=== PATIENT | male | born 1995 | race Caucasian/White ===

== ENCOUNTER 2020-05-30 17:00 | Emergency (ER) | payer BC ==
[2020-05-30 17:46] LABS: #Basophils 0.1 thou/uL (0.0-0.2); #Eosinphils 0.1 thou/uL (0.0-0.7); #Lymphocytes 1.9 thou/uL (1.20-3.40); #Monocytes 0.7 thou/uL (0.11-0.59); #Neutrophils 8.3 thou/uL (1.40-6.50); %Basophils 0.6 % (0.0-1.0); %Lymphocytes 17.1 % (21.0-51.0); %Monocytes 5.9 % (0.0-10.0); %Neutrophils 75.3 % (42.0-75.0); Hemoglobin 14.8 g/dL (14.0-18.0); Mean Corpuscular HGB CONC 32.8 g/dL (32.0-36.0); Mean Corpuscular Hemoglobin 30.3 pg (27.0-31.0); Mean Corpuscular Volume 92.2 fL (78.0-98.0); Mean Platelet Volume 8.1 fL (7.4-10.4); Platelet Count 350 thou/uL (130-400); RBC Distribution Width 12.1 % (11.5-14.5); Red Blood Cell (RBC) Count 4.88 mill/uL (4.70-6.10)
[2020-05-30 17:58] LABS: Bilirubin Negative (Negative); Blood, Urine Negative (Negative); Clarity Turbid (Clear); Glucose, Urine (Dipstick) Normal (Negative); Ketone, Urine Negative (Negative); Leukocyte Negative Leu/uL (Negative); Nitrite Negative (Negative); Protein, Urine (Dipstick) Negative (Neg-Trace); Specific Gravity, Urine 1.016 (1.002-1.036); Urobilinogen Normal mg/dL (Less than 2); pH, Urine 5.5 (5.0-9.0)
[2020-05-30 18:10] LABS: ALT (SGPT) 46 U/L (8-55); AST (SGOT) 59 U/L (5-34); Acetaminophen Less than 6.0 mcg/mL (10.0-30.0); Albumin 4.2 g/dL (3.5-5.0); Alcohol Less than 10 mg/dL (Less than 10); Alkaline Phosphatase 77 U/L (40-110); Anion Gap 13 mmol/L (10-20); BUN (Urea Nitrogen) 11 mg/dL (8.9-20.6); Bilirubin, Total 0.4 mg/dL (0.2-1.2); Calc. Creatinine Clearance 0 mL/min (70-130); Calcium 9.4 mg/dL (7.8-10.44); Carbon Dioxide 28 mmol/L (22-29); Chloride 101 mmol/L (98-107); Estimated GFR-MDRD Greater than 90; Globulin 3.5 g/dL (2.4-3.5); Glucose 195 mg/dL (70-105); Potassium 4.8 mmol/L (3.5-5.1); Protein, Total 7.7 g/dL (6.0-8.3); Salicylate Less than 8.0 mg/dL (15.0-30.0); Sodium 137 mmol/L (136-145)
[2020-05-30 18:14] LABS: Amphetamine Not Detected (NotDetected); Barbiturates Screen Not Detected (NotDetected); Benzodiazepine Screen Not Detected (NotDetected); Cocaine Metabolite Screen Not Detected (NotDetected); Medtox Control Line Valid? VALID (VALID); Medtox Reader # READER 1; Methadone Not Detected (NotDetected); Methamphetamine Not Detected (NotDetected); Opiate Screen Not Detected (NotDetected); Oxycodone Screen Not Detected (NotDetected); Phencyclidine (PCP) Not Detected (NotDetected); THC/Cannabinoid Screen Not Detected (NotDetected); Tricyclic Screen Not Detected (NotDetected)
--- NOTE | 2020-05-30 18:16 | CT ---
CT HEAD WITHOUT CONTRAST: 05/30/20 INDICATIONS: Mental status change. FINDINGS: The ventricles have normal size and position. No evidence of intracranial mass, hemorrhage, contusion or edema. No evidence of infarct. The visualized sinuses and mastoids are clear. The bony calvarium appears intact. IMPRESSION: Unremarkable head CT. POS: AGW
== END 2020-05-30 19:30 | disposition home or self-care (01) ==
LOC: ERS 17:00
DX: R41.0 Disorientation, unspecified (principal); E10.9 Type 1 diabetes mellitus without complications; Z79.4 Long term (current) use of insulin
CPT/HCPCS: 36415; 36416; 70450; 80053; 80306; 80307; 81003; 84484; 85025; 93005

== ENCOUNTER 2020-10-01 16:48 | Inpatient (IN) | payer BC ==
[2020-10-01 17:34] LABS: #Monocytes 0.2 thou/uL (0.11-0.59); #Neutrophils 9.9 thou/uL (1.40-6.50); %Basophils 0.3 % (0.0-1.0); %Eosinophils 0.2 % (0.0-10.0); %Lymphocytes 16.2 % (21.0-51.0); %Monocytes 1.8 % (0.0-10.0); %Neutrophils 81.4 % (42.0-75.0); Hemoglobin 17.2 g/dL (14.0-18.0); Mean Corpuscular HGB CONC 33.3 g/dL (32.0-36.0); Mean Corpuscular Hemoglobin 31.6 pg (27.0-31.0); Mean Corpuscular Volume 94.9 fL (78.0-98.0); Mean Platelet Volume 10.3 fL (7.4-10.4); Platelet Count 212 thou/uL (130-400); RBC Distribution Width 12.5 % (11.5-14.5); Red Blood Cell (RBC) Count 5.44 mill/uL (4.70-6.10); White Blood Cell (WBC) Count 12.1 thou/uL (4.8-10.8)
[2020-10-01 17:37] LABS: Base Excess-Venous -16.2 mmol/L (-2.0 to 3.0); Bicarbonate (HCO3v) 10.7 mmol/L (22.0-28.0); Calcium, Ionized 1.09 mmol/L (1.15-1.33); Chloride 107 mmol/L (98-107); Potassium 4.8 mmol/L (3.5-5.1); Sodium 131 mmol/L (138-145); T. Carbon Dioxide 11.6 mmol/L (22.0-28.0); vO2 Saturation-calc 62.5 % (60.0-85.0)
[2020-10-01] MEDS ORDERED: INSULIN REGULAR IN 0.9 % NACL 100 UNIT/100 ML BAG ONE (17:43)
[2020-10-01 18:01] LABS: ALT (SGPT) 82 U/L (8-55); AST (SGOT) 37 U/L (5-34); Albumin 5.4 g/dL (3.5-5.0); Alkaline Phosphatase 78 U/L (40-110); Anion Gap 36 mmol/L (10-20); BUN (Urea Nitrogen) 27 mg/dL (8.9-20.6); Bilirubin, Total 0.8 mg/dL (0.2-1.2); Calc. Creatinine Clearance 0 mL/min (70-130); Carbon Dioxide 10 mmol/L (22-29); Chloride 96 mmol/L (98-107); Estimated GFR-MDRD 47; Globulin 4.1 g/dL (2.4-3.5); Glucose 438 mg/dL (70-105); Protein, Total 9.5 g/dL (6.0-8.3); Sodium 137 mmol/L (136-145)
[2020-10-01 19:13] LABS: Bacteria/HPF None Seen HPF (None Seen); Bilirubin Negative (Negative); Blood, Urine Trace (Negative); Clarity Clear (Clear); Glucose, Urine (Dipstick) Greater than 1000 mg/dL (Negative); Ketone, Urine Greater than 150 mg/dL (Negative); Leukocyte Negative Leu/uL (Negative); Nitrite Negative (Negative); Protein, Urine (Dipstick) 20 mg/dL (Neg-Trace); Specific Gravity, Urine 1.023 (1.002-1.036); Squamous Epithelial None Seen HPF (0-3); Urobilinogen Normal mg/dL (Less than 2); WBC/HPF 0-3 HPF (0-3)
[2020-10-01] MEDS ORDERED: NS 0.9% w/ 20 MEQ KCL 1,000 ML IV PRN ×2 (19:27)
[2020-10-01] MEDS ORDERED: Dextrose 5 %-0.45 % NaCl 1,000 ML IV PRN (19:27)
[2020-10-01] MEDS ORDERED: Sodium Chloride 0.9% 1,000 ML IV PRN ×4 (19:27)
[2020-10-01] MEDS ORDERED: Electrolyte Replacement Protoc 1 EACH EACH IVPB SCH (19:27)
[2020-10-01] MEDS ORDERED: HUMULIN R 100 UNITS in Sodium Chloride 0.9% 100 ML IVPB SCH (19:30)
[2020-10-01 20:13] LABS: Anion Gap 26 mmol/L (10-20); BUN (Urea Nitrogen) 22 mg/dL (8.9-20.6); Calc. Creatinine Clearance 0 mL/min (70-130); Carbon Dioxide 11 mmol/L (22-29); Chloride 108 mmol/L (98-107); Estimated GFR-MDRD 66; Glucose 273 mg/dL (70-105); Potassium 4.8 mmol/L (3.5-5.1); Sodium 140 mmol/L (136-145)
[2020-10-01] MEDS: D5 1/2 NS w/20 mEq KCL 1,000 ML IV PRN (23:13)
[2020-10-01] MEDS: Famotidine/PF 20 mg/2ml Vial SLOW IVP SCH (23:13)
[2020-10-01 23:56] LABS: Anion Gap 16 mmol/L (10-20); BUN (Urea Nitrogen) 20 mg/dL (8.9-20.6); Calc. Creatinine Clearance 0 mL/min (70-130); Calcium 8.3 mg/dL (7.8-10.44); Carbon Dioxide 19 mmol/L (22-29); Chloride 108 mmol/L (98-107); Estimated GFR-MDRD 73; Glucose 147 mg/dL (70-105); Potassium 4.5 mmol/L (3.5-5.1); Sodium 138 mmol/L (136-145)
[2020-10-02 00:06] VITALS: BMI 18.5
--- NOTE | 2020-10-02 00:29 | HP ---
CHIEF COMPLAINT: Nausea and vomiting. HISTORY OF PRESENT ILLNESS: Mr. Rizo is a 25-year-old male with past medical history of diabetes mellitus, type 1, on insulin, presents to the emergency room with nausea and vomiting for the last 2 days. The patient stated that he has insulin-dependent diabetes, whose blood sugar has been elevated between 250 and 400 for the last 3 days. He had a previous history of diabetic ketoacidosis. He is compliant with his medications. He also reported polyuria, polydipsia, and weight loss over the last 2 weeks. No fever. No chills. Lab work, the patient was found to be in diabetic ketoacidosis with elevated anion gap of 36 and glucose more than 300. Also, he was found to have a BUN of 27 and creatinine of 1.78. PH was 7.17. The patient was started on IV fluids, insulin drip. The patient is being admitted to hospital for further management. PAST MEDICAL HISTORY: Diabetes mellitus, type 1. PAST SURGICAL HISTORY: None. FAMILY HISTORY: Mother has type 2 diabetes. SOCIAL HISTORY: Denies smoking. Drinks alcohol socially. No drug abuse. ALLERGIES: NO KNOWN ALLERGIES. HOME MEDICATIONS: See home medication reconciliation form for updated medications. REVIEW OF SYSTEMS: Review of 14 systems is negative except for what is mentioned in history of present illness. PHYSICAL EXAMINATION: GENERAL: The patient is awake, alert, not in acute distress. HEAD AND NECK: Normocephalic, atraumatic. Mucous membranes dry. VITAL SIGNS: Blood pressure 114/77, pulse is 111, respiratory rate is 20, temperature is 98, oxygen saturation 100% on room air. NECK: Supple. CHEST: Fair bilateral air entry. HEART: S1, S2. Regular. Tachycardic. ABDOMEN: Soft. Bowel sounds present. NEUROLOGIC: Awake, alert, and oriented x3. No focal deficits. PSYCH: Unable to assess. GENITOURINARY: No suprapubic tenderness. No flank tenderness. SKIN: Dry. No rash. LABORATORY DATA: As mentioned above in history of present illness. ASSESSMENT AND PLAN: 1. Diabetic ketoacidosis. 2. Acute kidney injury. 3. Nausea and vomiting. PLAN: 1. Admit. 2. IV fluids. 3. Insulin. 4. Monitor and correct electrolytes. 5. Monitor kidney function and urine output. 6. Reconcile home medications. 7. DVT prophylaxis as appropriate. 8. Expected length of stay, 2 midnights. Job ID: [id number]
[2020-10-02] MEDS: D5 1/2 NS w/20 mEq KCL 1,000 ML IV PRN ×2 (02:22→05:49)
[2020-10-02 03:39] LABS: Anion Gap 11 mmol/L (10-20); BUN (Urea Nitrogen) 19 mg/dL (8.9-20.6); Calc. Creatinine Clearance 78 mL/min (70-130); Calcium 7.8 mg/dL (7.8-10.44); Carbon Dioxide 21 mmol/L (22-29); Chloride 109 mmol/L (98-107); Estimated GFR-MDRD 77; Glucose 236 mg/dL (70-105); Potassium 4.6 mmol/L (3.5-5.1); Sodium 136 mmol/L (136-145)
[2020-10-02 08:44] LABS: SARS-CoV-2 MS2 Positive; SARS-CoV-2 N Gene Negative; SARS-CoV-2 S Gene Negative; SARS-CoV-2 by NAA Not Detected (NotDetected); SARS-CoV-2 orf1ab Negative
[2020-10-02] MEDS ORDERED: FLU VACC QS2020-21(6MOS UP)/PF 60 MCG/0.5 ML SYRINGE IM ONE (09:00)
[2020-10-02] MEDS ORDERED: Enoxaparin Sodium 30 MG/0.3 ML SYRINGE SC SCH (09:00)
[2020-10-02] MEDS: Famotidine/PF 20 mg/2ml Vial SLOW IVP SCH (09:01)
[2020-10-02] MEDS ORDERED: HumaLOG 300 UNITS/3 ML VIAL SC PRN ×2 (12:45)
[2020-10-02] MEDS ORDERED: Insulin Glargine 15 UNITS in Pre-Filled Syringe 1 EACH SC SCH (12:45)
[2020-10-02] MEDS ORDERED: Dextrose 5% in Water 1,000 ML IV PRN (12:45)
[2020-10-02] MEDS ORDERED: Dextrose 50% Abboject 50 ML SYRINGE SLOW IVP PRN (12:45)
--- NOTE | 2020-10-02 14:04 | PDOC.HOSPP ---
- Subjective Encounter Date: 10/02/20 Encounter Time: 09:00 Subjective: awake, oriented well had h/o stomach flu with intractable nausea/vomiting for 2 days prior to arrival which has resolved now no abd pain or diarrhea - Objective Vital Signs & Weight: Vital Signs (12 hours) Temp Pulse Ox 10/02/20 12:00 98.5 F 10/02/20 07:52 100 10/02/20 07:25 98.4 F 10/02/20 04:01 97.4 F L Weight Admit Weight 125 lb 10.616 oz Weight 125 lb 10.616 oz Most Recent Monitor Data Heart Rate from ECG 73 NIBP 107/66 NIBP BP-Mean 79 Respiration from ECG 14 SpO2 100 I&O: 10/01/20 10/02/20 10/03/20 06:59 06:59 06:59 Intake Total 1674 1050 Output Total 550 660 Balance 1124 390 Result Diagrams: 10/01/20 17:21 10/02/20 03:04 Additional Labs: Accuchecks 10/02/20 10/02/20 10/02/20 12:30 10:02 07:48 POC Glucose 219 H 118 H 149 H 10/02/20 10/02/20 10/02/20 06:08 05:05 04:06 POC Glucose 154 H 174 H 202 H 10/02/20 10/02/20 10/02/20 03:07 02:16 01:15 POC Glucose 207 H 217 H 204 H 10/02/20 10/01/20 10/01/20 00:03 23:14 21:53 POC Glucose 162 H 118 H 171 H 10/01/20 10/01/20 10/01/20 20:54 19:52 18:37 POC Glucose 202 H 255 H 337 H 10/01/20 10/01/20 17:18 16:53 POC Glucose 405 H 385 H - Exam General Appearance: awake alert Eye: PERRL, anicteric sclera ENT: no oropharyngeal lesions, dry oral mucosa Neck: supple, no JVD Heart: RRR, no murmur Respiratory: no wheezes, no rales Gastrointestinal: soft, non-tender, non-distended, normal bowel sounds Extremities: no cyanosis, no edema Neurological: cranial nerve grossly intact, no focal deficits Psychiatric: normal affect, A&O x 3 Hosp A/P (1) DKA, type 1 Code(s): E10.10 - TYPE 1 DIABETES MELLITUS WITH KETOACIDOSIS WITHOUT COMA Status: Acute Qualifiers: Diabetes mellitus complication detail: without coma Qualified Code(s): E10.10 - Type 1 diabetes mellitus with ketoacidosis without coma (2) DM type 1 (diabetes mellitus, type 1) Status: Chronic (3) SHUBHAM (acute kidney injury) Code(s): N17.9 - ACUTE KIDNEY FAILURE, UNSPECIFIED Status: Resolved - Plan dka is resolving start lantus along with aggressive coverage oral diet tx to med floor hemostable ambulate as tolerated dc plan in am if stable
[2020-10-02] MEDS: Sodium Chloride 0.9% 1,000 ML IV SCH (15:05)
[2020-10-02] MEDS ORDERED: Insulin Glargine 20 UNITS in Pre-Filled Syringe 1 EACH SC SCH (21:00)
[2020-10-03] MEDS: Sodium Chloride 0.9% 1,000 ML IV SCH (03:56)
[2020-10-03 07:08] LABS: Anion Gap 11 mmol/L (10-20); BUN (Urea Nitrogen) 11 mg/dL (8.9-20.6); Calc. Creatinine Clearance 88 mL/min (70-130); Calcium 8.4 mg/dL (7.8-10.44); Carbon Dioxide 25 mmol/L (22-29); Chloride 109 mmol/L (98-107); Estimated GFR-MDRD 88; Glucose 172 mg/dL (70-105); Potassium 4.2 mmol/L (3.5-5.1); Sodium 141 mmol/L (136-145)
[2020-10-03] MEDS ORDERED: Insulin Glargine 10 UNITS in Pre-Filled Syringe 1 EACH SC SCH (09:00)
[2020-10-03 11:26] VITALS: BP 120/82; TEMP 98.4
--- NOTE | 2020-10-03 14:22 | DIS ---
DATE OF ADMISSION: 10/01/2020 DATE OF DISCHARGE: 10/03/2020 DISCHARGE DISPOSITION: To home. PRIMARY DISCHARGE DIAGNOSES: Diabetic ketoacidosis with type 1 diabetes; acute kidney injury on arrival, resolved. PROCEDURES DONE DURING HOSPITALIZATION: Blood gas showed a pH of 7.17. This is venous blood gas. Bicarb of 10 on admission. Discharge BUN and creatinine are 11 and 1.0. Serum bicarb on discharge is 25. Admitting BUN and creatinine were 27 and 1.7 with serum bicarb of 10. Serum glucose was 438. UA showed no signs of infection. Beta-hydroxybutyrate was 11.7. COVID-19 PCR was not detected on 10/01/2020. DISCHARGE MEDICATION: Insulin glargine 30 units subcu q.p.m. ALLERGIES: NO KNOWN DRUG ALLERGIES. DISCHARGE PLAN: The patient to follow up with his primary care physician, Dr. Duong, in [place] in 3 to 4 days. He is advised to check fingerstick glucose twice daily and record for 10 days to follow up with primary care physician. BRIEF COURSE DURING HOSPITALIZATION: The patient initially got admitted on the 16th night with complaints of nausea and vomiting. He apparently had stomach flu with intractable nausea and vomiting for 2 days and was unable to keep anything down and was not taking his insulin as well. On arrival, he was in DKA with type 1 diabetes. The patient has history of diabetes mellitus, type 1 from [age] years of age. He had acute kidney injury due to severe dehydration from DKA. He was aggressively hydrated and was admitted to [facility] on DKA protocol. Mr. Rizo has done remarkably well during his brief stay here. He was transitioned to Lantus during his stay here and has remained hemodynamically stable. He is ambulating and tolerating oral solid diet prior to discharge. Please note, I have seen and examined the patient on the day of discharge. Job ID: [id number]
--- NOTE | 2020-10-06 15:30 | EKG ---
Test Reason : Blood Pressure : / mmHG Vent. Rate : 096 BPM Atrial Rate : 096 BPM P-R Int : 128 ms QRS Dur : 086 ms QT Int : 352 ms P-R-T Axes : 070 086 041 degrees QTc Int : 444 ms Normal sinus rhythm Borderline ECG Confirmed by GENNY WAKEFIELD, DANISH Mckeon ([id number]), script editor KERRY KIRK ([id number]) on 10/06/2020 3:30:05 PM Referred By: Confirmed By:DANISH ROYAL MD
== END 2020-10-03 11:48 | disposition home or self-care (01) | DRG 638 ==
LOC: ERS 16:48 → ERHOLD 19:27 → IMCU/EMU 22:48 → T4-B 10-02 20:03
PROVIDERS: ADMIT Internal Medicine; ATTEND Internal Medicine
DX: E10.10 Type 1 diabetes mellitus with ketoacidosis without coma (principal); N17.9 Acute kidney failure, unspecified; Z79.899 Other long term (current) drug therapy; Z20.828 Contact with and (suspected) exposure to other viral communicable diseases; E86.0 Dehydration; Z79.4 Long term (current) use of insulin
CPT/HCPCS: 36415; 36416; 80048; 80053; 81003; 81015; 82010; 82330; 82803; 85025; 87635; 90471; 90732; 93005; 96365; 96366; G0009; J1650; J1815; J3480; J3490; S0028; U0003